=== PATIENT | female | born 1985 | race African-American/Black ===

== ENCOUNTER 2018-12-21 12:10 | Observation (INO) ==
[2018-12-21] MEDS ORDERED: SODIUM CHLORIDE 0.9% 1,000 ML IV STA (14:52)
[2018-12-21] MEDS ORDERED: ONDANSETRON 4 MG/2 ML VIAL IV STA (14:52)
[2018-12-21 15:52] LABS: Basophils % 0.2 % (0.0-0.8); Eosinophils % 0.1 % (0.00-10.9); Hemoglobin 15.2 GM/DL (12.0-16.0); Immature Granulocytes % 0.3 %; Immature Granulocytes Absolute 0.03 #; Lymphocytes # 1.7 10*3/uL (1.4-4.0); Lymphocytes % 18.4 % (21.3-54.2); Mean Corpuscular HGB Conc 35.3 GM/DL (32-36); Mean Corpuscular Volume 86.2 FL (87-102); Mean Platelet Volume 9.4 FL (9.6-12.0); Platelet Count 330 T/CUMM (130-400); Red Blood Count 4.99 MC/CUMM (3.8-5.5); Red Cell Distribution Width 11.9 % (9.3-17.3)
[2018-12-21 16:26] LABS: Albumin 4.7 G/DL (3.4-5.0); Bilirubin,Total 0.4 MG/DL (0.2-1.0); Calcium 9.6 MG/DL (8.5-10.1); Osmolality,Calculated 274.5 MOS/KG (273-304)
[2018-12-21] MEDS ORDERED: PROMETHAZINE 25 MG/1 ML VIAL ONE (16:41)
[2018-12-21] MEDS ORDERED: PROMETHAZINE 25 MG/1 ML VIAL IM STA (16:45)
[2018-12-21] MEDS ORDERED: PROMETHAZINE INJ 25 MG in SODIUM CHLORIDE 0.9% 50 ML IV PRN (17:26)
[2018-12-21] MEDS: SODIUM CHLORIDE 0.9% 1,000 ML IV SCH (18:45)
[2018-12-21 20:56] LABS: Apearance,Urine CLOUDY (Clear); Bilirubin,Urine Negative (Negative); Blood, Urine Negative (Negative); Glucose,Urine (UA) Negative (Negative); Ketones,Urine 80 mg/dL (Negative); Mucus,Urine Many /LPF (Occasional); Nitrite,Urine Negative (Negative); Protein,Urine 30 MG/DL; Squamous Epithelial Cell,Urine Moderate /HPF (0-10); Urine Color Yellow (Yellow); Urine Specific Gravity 1.028 (1.001-1.035); Urine Urobilinogen < 2.0 EU/DL (0.2-1.0)
[2018-12-21] MEDS: ACETAMINOPHEN 325 MG TABLET PO PRN (21:36)
[2018-12-21] MEDS: ONDANSETRON 4 MG/2 ML VIAL IV PRN (21:37)
[2018-12-22 05:03] LABS: Basophils % 0.4 % (0.0-0.8); Eosinophils # 0.1 10*3/uL (0.0-0.87); Eosinophils % 0.9 % (0.00-10.9); Hematocrit 34.6 VOL% (35.7-47.0); Hemoglobin 11.7 GM/DL (12.0-16.0); Immature Granulocytes % 0.4 %; Immature Granulocytes Absolute 0.03 #; Lymphocytes # 2.2 10*3/uL (1.4-4.0); Lymphocytes % 29.7 % (21.3-54.2); Mean Corpuscular HGB Conc 33.8 GM/DL (32-36); Mean Platelet Volume 9.3 FL (9.6-12.0); Monocytes % 6.2 % (1.7-12.7); Neutrophils % 62.4 % (38.7-73.9); Platelet Count 251 T/CUMM (130-400); Red Blood Count 3.93 MC/CUMM (3.8-5.5); Red Cell Distribution Width 11.9 % (9.3-17.3); White Blood Count 7.5 T/CUMM (4-12)
[2018-12-22 05:30] LABS: Albumin 3.3 G/DL (3.4-5.0); Bilirubin,Total 0.8 MG/DL (0.2-1.0); Calcium 8.1 MG/DL (8.5-10.1); Osmolality,Calculated 275.4 MOS/KG (273-304); Total Protein 6.4 G/DL (6.4-8.3)
[2018-12-22] MEDS: SODIUM CHLORIDE 0.9% 1,000 ML IV SCH ×3 (09:09→18:17)
[2018-12-22] MEDS: ACETAMINOPHEN 325 MG TABLET PO PRN (13:44)
[2018-12-22] MEDS ORDERED: METOCLOPRAMIDE 10 MG/2 ML VIAL IV ONE (18:02)
[2018-12-22] MEDS ORDERED: CYANOCOBALAMIN 1000 MCG/1 ML VIAL IM ONE (18:53)
[2018-12-22] MEDS ORDERED: DIAZEPAM 10 MG/2 ML SYRINGE IM ONE (21:00)
[2018-12-23] MEDS: SODIUM CHLORIDE 0.9% 1,000 ML IV SCH ×3 (02:26→19:38)
[2018-12-23] MEDS: ONDANSETRON 4 MG/2 ML VIAL IV PRN (08:16)
[2018-12-23] MEDS ORDERED: ONDANSETRON ODT 4 MG TABLET PO SCH (15:30)
[2018-12-23] MEDS: ONDANSETRON 4 MG/2 ML VIAL IV SCH (21:40)
[2018-12-24] MEDS: ONDANSETRON 4 MG/2 ML VIAL IV SCH ×4 (02:25→20:24)
[2018-12-24] MEDS: SODIUM CHLORIDE 0.9% 1,000 ML IV SCH ×4 (03:33→16:34)
[2018-12-24 05:22] LABS: Calcium 7.9 MG/DL (8.5-10.1); Osmolality,Calculated 272.5 MOS/KG (273-304)
[2018-12-24] MEDS: PANTOPRAZOLE 40 MG VIAL IV SCH ×2 (08:21→20:28)
[2018-12-24] MEDS: METOCLOPRAMIDE 10 MG/2 ML VIAL IV SCH ×3 (11:29→23:20)
[2018-12-25] MEDS: ONDANSETRON 4 MG/2 ML VIAL IV SCH ×2 (01:46→08:29)
[2018-12-25] MEDS: SODIUM CHLORIDE 0.9% 1,000 ML IV SCH ×2 (01:48→08:30)
[2018-12-25] MEDS: METOCLOPRAMIDE 10 MG/2 ML VIAL IV SCH (05:11)
[2018-12-25 05:36] LABS: Basophils % 0.4 % (0.0-0.8); Eosinophils # 0.1 10*3/uL (0.0-0.87); Eosinophils % 1.5 % (0.00-10.9); Hematocrit 34.9 VOL% (35.7-47.0); Hemoglobin 12.3 GM/DL (12.0-16.0); Immature Granulocytes % 0.2 %; Immature Granulocytes Absolute 0.01 #; Lymphocytes # 1.6 10*3/uL (1.4-4.0); Lymphocytes % 33.9 % (21.3-54.2); Mean Corpuscular HGB Conc 35.2 GM/DL (32-36); Mean Corpuscular Volume 85.3 FL (87-102); Mean Platelet Volume 9.1 FL (9.6-12.0); Monocytes % 8.9 % (1.7-12.7); Neutrophils % 55.1 % (38.7-73.9); Platelet Count 248 T/CUMM (130-400); Red Blood Count 4.09 MC/CUMM (3.8-5.5); Red Cell Distribution Width 11.5 % (9.3-17.3); White Blood Count 4.6 T/CUMM (4-12)
[2018-12-25 06:01] LABS: Calcium 8.1 MG/DL (8.5-10.1); Osmolality,Calculated 274.4 MOS/KG (273-304)
[2018-12-25] MEDS: PANTOPRAZOLE 40 MG VIAL IV SCH (08:29)
[2018-12-25] MEDS: ONDANSETRON 4 MG TABLET PO SCH ×2 (09:42→15:43)
[2018-12-25 11:25] VITALS: BP 98/60
[2018-12-25] MEDS ORDERED: PANTOPRAZOLE 40 MG TABLET PO SCH (21:00)
== END 2018-12-25 15:07 | disposition home or self-care (01) ==
LOC: N.EDINP 12:10 → N.ED 12:10 → SUATTDRO 17:18 → N.5E 17:54
PROVIDERS: ADMIT Internal Medicine Cardiovascular Disease; ATTEND Internal Medicine

== ENCOUNTER 2019-07-30 06:04 | Inpatient (IN) ==
[2019-07-30] MEDS ORDERED: CITRIC ACID/SODIUM CITRATE 30 ML UDCUP PO ONE (06:11)
[2019-07-30] MEDS ORDERED: FAMOTIDINE 20 MG/2 ML VIAL IV ONE (06:11)
[2019-07-30] MEDS ORDERED: ceFAZolin 2,000 MG in PREMIX 1 EACH IV ONE (06:11)
[2019-07-30] MEDS ORDERED: OXYTOCIN/LR 20 UNIT/1,000 ML BAG IV ONE ×2 (06:13→09:44)
[2019-07-30] MEDS: LACTATED RINGERS 1,000 ML IV SCH ×2 (06:35→07:09)
[2019-07-30] MEDS ORDERED: BUPIVACAINE 0.5% 50 ML VIAL ONE (06:54)
[2019-07-30 07:05] LABS: Basophils % 0.2 % (0.0-0.8); Eosinophils # 0.1 10*3/uL (0.0-0.87); Eosinophils % 0.9 % (0.00-10.9); Hemoglobin 9.7 GM/DL (12.0-16.0); Immature Granulocytes Absolute 0.09 #; Lymphocytes # 2.5 10*3/uL (1.4-4.0); Lymphocytes % 27.9 % (21.3-54.2); Mean Corpuscular HGB Conc 33.4 GM/DL (32-36); Mean Corpuscular Volume 87.3 FL (87-102); Mean Platelet Volume 10.1 FL (9.6-12.0); Monocytes % 6.7 % (1.7-12.7); Neutrophils % 63.3 % (38.7-73.9); Platelet Count 306 T/CUMM (130-400); Red Blood Count 3.32 MC/CUMM (3.8-5.5); Red Cell Distribution Width 13.7 % (9.3-17.3); White Blood Count 8.9 T/CUMM (4-12)
[2019-07-30 07:24] LABS: Alanine Aminotransferase 20 U/L (13-56); Albumin 2.8 G/DL (3.4-5.0); Alkaline Phosphatase 156 U/L (45-117); Aspartate Amino Transferase 21 U/L (0-37); Bilirubin,Total < 0.39 MG/DL (0.2-1.0); Blood Urea Nitrogen 6 MG/DL (7-18); Calcium 8.4 MG/DL (8.5-10.1); Estimated Glom Filtration Rate 127 ML/MIN; Glucose 80 MG/DL (74-106); Osmolality,Calculated 264.2 MOS/KG (273-304); Total Protein 7.3 G/DL (6.4-8.3)
[2019-07-30] MEDS ORDERED: miSOPROStoL 200 MCG TABLET ONE (08:57)
[2019-07-30 09:37] LABS: Apearance,Urine CLEAR (Clear); Bacteria,Urine Occasional /HPF (Few); Bilirubin,Urine Negative (Negative); Blood, Urine Negative (Negative); Glucose,Urine (UA) Negative (Negative); Ketones,Urine Negative (Negative); Mucus,Urine Occasional /LPF (Occasional); Nitrite,Urine Negative (Negative); Protein,Urine Negative; Squamous Epithelial Cell,Urine Occasional /HPF (0-10); Urine Color Colorless (Yellow); Urine Specific Gravity 1.002 (1.001-1.035); Urine Urobilinogen < 2.0 EU/DL (0.2-1.0); WBC,Urine <1 /HPF (0-6)
[2019-07-30] MEDS ORDERED: oxyCODONE/ACETAMINOPHEN 5-325 MG TABLET PO PRN (09:44)
[2019-07-30] MEDS ORDERED: ACETAMINOPHEN 325 MG TABLET PO PRN (09:44)
[2019-07-30] MEDS ORDERED: LANOLIN 50% CREAM 0.3 OZ TUBE TOP PRN (09:44)
[2019-07-30] MEDS ORDERED: BENZOCAINE 20%/MENTHOL 0.5% SPRAY 56 GM CAN TOP PRN (09:44)
[2019-07-30] MEDS ORDERED: RHO(D) IMMUNE GLOBULIN 300 MCG SYRINGE IM ONE (09:44)
[2019-07-30] MEDS ORDERED: MEASLES/MUMPS/RUBELLA VACCINE 0.5 ML VIAL SUBCUT ONE (09:44)
[2019-07-30] MEDS ORDERED: DIPH/TET/ACEL PERT BOOSTER VACCINE 0.5 ML VIAL IM ONE (09:44)
[2019-07-30] MEDS ORDERED: HYDROCORTISONE 2.5% RECTAL CREAM 30 GM TUBE TOP PRN (09:44)
[2019-07-30] MEDS ORDERED: WITCH HAZEL PADS 100/JAR TOP PRN (09:44)
[2019-07-30] MEDS ORDERED: BISACODYL 10 MG SUPP RECTAL PRN (09:44)
[2019-07-30] MEDS: POTASSIUM CHLORIDE RIDER 10 MEQ in PREMIX 1 EACH IV SCH ×2 (10:21→10:32)
[2019-07-30] MEDS ORDERED: hydrOXYzine HCL 25 MG/1 ML VIAL IM PRN (10:23)
[2019-07-30] MEDS ORDERED: diphenhydrAMINE 50 MG/1 ML VIAL IV PRN (10:23)
[2019-07-30] MEDS ORDERED: HYDROmorphone 2 MG/1 ML VIAL IV PRN (10:23)
[2019-07-30] MEDS ORDERED: LIDOCAINE 2% 5 ML VIAL ONE (11:54)
[2019-07-30] MEDS ORDERED: SEVOFLURANE 1 UNIT/15 MINUTE INH ONE (11:54)
[2019-07-30] MEDS ORDERED: DEXAMETHASONE 4 MG/1 ML VIAL ONE (11:55)
[2019-07-30] MEDS ORDERED: MORPHINE 10 MG/10 ML VIAL ONE (11:55)
[2019-07-30] MEDS ORDERED: fentaNYL 100 MCG/2 ML VIAL ONE (11:55)
[2019-07-30] MEDS ORDERED: ONDANSETRON 4 MG/2 ML VIAL ONE (11:55)
[2019-07-30] MEDS ORDERED: GLYCOPYRROLATE 0.4 MG/2 ML VIAL ONE (11:55)
[2019-07-30] MEDS ORDERED: MIDAZOLAM 2 MG/2 ML VIAL ONE (11:55)
[2019-07-30] MEDS ORDERED: propofoL 200 MG/20 ML VIAL IV ONE (11:56)
[2019-07-30] MEDS ORDERED: SUCCINYLCHOLINE 200 MG/10 ML VIAL ONE (11:56)
[2019-07-30] MEDS ORDERED: ROCURONIUM 100 MG/10 ML VIAL IV ONE (11:56)
[2019-07-30] MEDS ORDERED: ACETAMINOPHEN 500 MG TABLET ONE (13:24)
[2019-07-30] MEDS ORDERED: ACETAMINOPHEN 500 MG TABLET PO PRN (13:27)
[2019-07-30] MEDS: ONDANSETRON 4 MG/2 ML VIAL IV PRN ×2 (14:35→21:04)
[2019-07-30] MEDS ORDERED: SODIUM CHLORIDE 0.9% 50 ML IV ONE (15:31)
[2019-07-30] MEDS: ceFAZolin 1,000 MG in SYRINGE 1 EACH IV SCH ×2 (15:35→23:31)
[2019-07-30] MEDS: DOCUSATE SODIUM 100 MG CAPSULE PO SCH (21:03)
[2019-07-30] MEDS: IBUPROFEN 800 MG TABLET PO PRN (21:03)
[2019-07-30] MEDS: oxyCODONE/ACETAMINOPHEN 5-325 MG TABLET PO PRN (21:04)
[2019-07-31] MEDS: oxyCODONE/ACETAMINOPHEN 5-325 MG TABLET PO PRN ×4 (04:00→22:25)
[2019-07-31] MEDS: ONDANSETRON 4 MG/2 ML VIAL IV PRN ×2 (04:07→22:28)
[2019-07-31 07:13] LABS: Basophils % 0.2 % (0.0-0.8); Eosinophils # 0.1 10*3/uL (0.0-0.87); Eosinophils % 0.4 % (0.00-10.9); Hematocrit 19.5 VOL% (35.7-47.0); Immature Granulocytes Absolute 0.14 #; Lymphocytes # 2.9 10*3/uL (1.4-4.0); Lymphocytes % 20.3 % (21.3-54.2); Mean Corpuscular HGB Conc 32.8 GM/DL (32-36); Mean Corpuscular Volume 86.3 FL (87-102); Mean Platelet Volume 10.4 FL (9.6-12.0); Monocytes % 4.4 % (1.7-12.7); Neutrophils % 73.7 % (38.7-73.9); Platelet Count 240 T/CUMM (130-400); Red Blood Count 2.26 MC/CUMM (3.8-5.5); Red Cell Distribution Width 13.2 % (9.3-17.3); White Blood Count 14.5 T/CUMM (4-12)
[2019-07-31 07:16] LABS: Hemoglobin 6.4 GM/DL (12.0-16.0)
[2019-07-31 07:29] LABS: Alanine Aminotransferase 27 U/L (13-56); Alkaline Phosphatase 103 U/L (45-117); Aspartate Amino Transferase 35 U/L (0-37); Bilirubin,Total < 0.39 MG/DL (0.2-1.0); Blood Urea Nitrogen 4 MG/DL (7-18); Calcium 7.5 MG/DL (8.5-10.1); Estimated Glom Filtration Rate 133 ML/MIN; Glucose 84 MG/DL (74-106); Osmolality,Calculated 265.1 MOS/KG (273-304); Total Protein 5.1 G/DL (6.4-8.3)
[2019-07-31] MEDS ORDERED: SODIUM CHLORIDE 0.9% 1,000 ML IV PRN (07:42)
[2019-07-31] MEDS: FERROUS SULFATE 325 MG TABLET PO SCH ×2 (08:59→21:13)
[2019-07-31] MEDS: POTASSIUM CHLORIDE RIDER 10 MEQ in PREMIX 1 EACH IV SCH ×2 (08:59→11:28)
[2019-07-31] MEDS: DOCUSATE SODIUM 100 MG CAPSULE PO SCH ×2 (08:59→21:13)
[2019-07-31] MEDS: ONDANSETRON 4 MG TABLET PO PRN ×2 (10:57→17:05)
[2019-07-31] MEDS: POTASSIUM CHLORIDE 20 MEQ TABLET PO SCH ×2 (15:15→21:14)
[2019-07-31] MEDS: SIMETHICONE CHEW 80 MG TABLET PO PRN (18:43)
[2019-07-31] MEDS: IBUPROFEN 800 MG TABLET PO PRN (21:14)
[2019-08-01] MEDS: SIMETHICONE CHEW 80 MG TABLET PO PRN ×2 (02:02→08:45)
[2019-08-01] MEDS: oxyCODONE/ACETAMINOPHEN 5-325 MG TABLET PO PRN (04:33)
[2019-08-01] MEDS: ONDANSETRON 4 MG TABLET PO PRN (04:33)
[2019-08-01 07:19] VITALS: BP 105/63
[2019-08-01] MEDS: FERROUS SULFATE 325 MG TABLET PO SCH (08:45)
[2019-08-01] MEDS: DOCUSATE SODIUM 100 MG CAPSULE PO SCH (08:45)
[2019-08-01] MEDS: IBUPROFEN 800 MG TABLET PO PRN (08:48)
[2019-08-01] MEDS ORDERED: POTASSIUM CHLORIDE 20 MEQ TABLET PO ONE (09:00)
== END 2019-08-01 11:35 | disposition home or self-care (01) | DRG 540 ==
LOC: N.LD 06:04 → N.OB 11:25
PROVIDERS: ADMIT Specialist; ATTEND Specialist
PROC: LDCSECT (ICD-10-PCS; 2019-07-30 13:15)